=== PATIENT | male | born 1990 | race Hispanic/Latino ===

== ENCOUNTER 2019-04-19 04:56 | Emergency (ER) | payer OTHER, SELFPAY ==
[2019-04-19] MEDS ORDERED: NA CHLORIDE 0.9% 1,000 ML ONE (05:52)
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
[2019-04-19 08:08] VITALS: TEMP 98.6
[2019-04-19 08:09] VITALS: BP 139/104; O2SAT 97
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
== END 2019-04-19 07:58 | disposition home or self-care (01) ==
LOC: ER 04:56
DX: T14.8XXA Other injury of unspecified body region, initial encounter (principal); V49.9XXA Car occupant (driver) (passenger) injured in unspecified traffic accident, initial encounter; M25.512 Pain in left shoulder; M54.2 Cervicalgia; Z72.0 Tobacco use
CPT/HCPCS: 70450; 71260; 72125; 74177; 96360; 96361; 99284; J7030; Q9967

== ENCOUNTER 2019-09-23 10:17 | Emergency (ER) | payer SELFPAY ==
[2019-09-23] MEDS ORDERED: HYDROCODONE/CHLORPHEN 5 ML/OSYR ONE (11:11)
--- NOTE | 2019-09-23 11:13 | RAD REPORT ---
EXAM DESCRIPTION: RAD - Chest Pa And Lat (2 Views) - 09/23/2019 10:57 am CLINICAL HISTORY: Cough;Fever Chest pain. COMPARISON: Chest Pa And Lat (2 Views) dated 02/19/2017; CHEST PA AND LAT 2 VIEW dated 08/15/2009; CH EST PA AND LAT 2 VIEW dated 07/29/2009 FINDINGS: The lungs are clear. The heart is normal in size. No displaced fractures. IMPRESSION: No acute or concerning finding suspected.
--- NOTE | 2019-09-23 11:31 | ER ---
Nurse's Notes [facility] Name: Javad Bowser Age: 29 yrs Sex: Male : 1990 Arrival Date: 09/23/2019 Time: 10:20 Bed 19 Private MD: Larry Palomo T Diagnosis: Otitis media, unspecified, right ear;Cough Presentation: 09/23 10:25 Transition of care: patient was not received from another setting of care. Onset of tw2 symptoms. Risk Assessment: Do you want to hurt yourself or someone else? Patient reports no desire to harm self or others. Initial Sepsis Screen: Does the patient meet any 2 criteria? No. Patient's initial sepsis screen is negative. Does the patient have a suspected source of infection? No. Patient's initial sepsis screen is negative. 10:25 Method Of Arrival: Ambulatory tw2 10:31 Presenting complaint: Patient states: cough, sweats, body aches, headache , also had iw diarrhea with blood in it. Care prior to arrival: None. 10:31 Acuity: DIAMOND 3 iw Historical: - Allergies: 10:28 No Known Allergies; tw2 - PMHx: 10:28 orbit facial fx; tw2 - PSHx: 10:28 None; tw2 - Immunization history:: Adult Immunizations. - Ebola Screening: : Patient denies travel to an Ebola-affected area in the 21 days before illness onset. - Social history:: Smoking status: . Screenin:27 Abuse screen: Denies threats or abuse. Nutritional screening: No deficits noted. tw2 Tuberculosis screening: No symptoms or risk factors identified. Fall Risk None identified. Assessment: 10:22 General: Appears in no apparent distress. Behavior is calm, cooperative, appropriate tw2 for age. Neuro: Level of Consciousness is awake, alert, obeys commands, Oriented to person, place, time, situation. Cardiovascular: Heart tones S1 S2 Capillary refill < 3 seconds Patient's skin is warm and dry. Respiratory: Reports cough that is non-productive, Airway is patent Respiratory effort is even, unlabored, Respiratory pattern is regular, symmetrical, Breath sounds are clear bilaterally. GI: Abdomen is flat, Bowel sounds present X 4 quads. Reports diarrhea, with blood in it. GI:. : No signs and/or symptoms were reported regarding the genitourinary system. EENT: Reports nasal congestion nasal discharge. Derm: No signs and/or symptoms reported regarding the dermatologic system. Musculoskeletal: Reports "body aches". 11:35 Reassessment: Patient appears in no apparent distress at this time. No changes from tw2 previously documented assessment. Patient and/or family updated on plan of care and expected duration. Pain level reassessed. Patient is alert, oriented x 3, equal unlabored respirations, skin warm/dry/pink. 11:38 Pain: Complains of pain in Body aches. tw2 11:54 Reassessment: Patient appears in no apparent distress at this time. No changes from tw2 previously documented assessment. Patient and/or family updated on plan of care and expected duration. Pain level reassessed. Patient is alert, oriented x 3, equal unlabored respirations, skin warm/dry/pink. pts brother in room at this time. Vital Signs: 10:25 BP 144 / 112; Pulse 102; Resp 18; Temp 98.8(TE); Pulse Ox 96% on R/A; Weight 89.81 kg; iw Height 5 ft. 7 in. (170.18 cm); Pain 8/10; 10:42 BP 130 / 96; Pulse 94; Resp 17; Pulse Ox 99% on R/A; tw2 11:38 BP 125 / 99; Pulse 92; Resp 17; Pulse Ox 99% on R/A; tw2 10:25 Body Mass Index 31.01 (89.81 kg, 170.18 cm) iw ED Course: 10:20 Patient arrived in ED. mr 10:20 Larry Palomo MD is Private Physician. mr 10:21 Edith Puente, DEVON is Primary Nurse. tw2 10:21 Bed in low position. Call light in reach. tw2 10:25 Sandoval Dailey NP is PHCP. pm1 10:25 Albin Whittington MD is Attending Physician. pm1 10:32 Triage completed. iw 10:32 Arm band placed on. iw 10:42 Flu Sent. tw2 10:42 Strep Sent. tw2 10:54 Chest Pa And Lat (2 Views) XRAY In Process Unspecified. EDMS 11:40 Awaiting transportation, Awaiting: transportation after medication PRIOR to discharge. tw2 11:55 No provider procedures requiring assistance completed. Patient did not have IV access tw2 during this emergency room visit. Administered Medications: 11:11 Drug: Tussionex Pennkinetic ER 5 ml Route: PO; tw2 11:55 Follow up: Response: No adverse reaction; RASS: Alert and Calm (0) tw2 Outcome: 11:30 Discharge ordered by MD. pm1 11:55 Discharged to home ambulatory, with family. tw2 11:55 Condition: stable 11:55 Discharge instructions given to patient, family, Instructed on discharge instructions, follow up and referral plans. medication usage, Demonstrated understanding of instructions, follow-up care, medications, Prescriptions given X 2. 11:56 Patient left the ED. tw2 Signatures: Dispatcher [employer] EDPA Mayra Montemayor Irene RN RN iw Sandoval Dailey, [employer] pm1 Edith Puente RN RN tw2 Corrections: (The following items were deleted from the chart) 10:31 10:25 BP 144 / 112; Pulse 102bpm; Resp 18bpm; Pulse Ox 96% RA; Temp 98.8F Temporal; tw2 iw 11:42 11:40 Awaiting transportation, tw2 tw2
--- NOTE | 2019-09-23 11:32 | EDPHYS ---
Physician Documentation [facility] Name: Javad Bowser Age: 29 yrs Sex: Male : 1990 Arrival Date: 09/23/2019 Time: 10:20 Bed 19 Private MD: Larry Palomo T ED Physician Albin Whittington HPI: 09/23 11:08 This 29 yrs old Male presents to ER via Ambulatory with complaints of Flu pm1 Symptoms. 11:08 The patient or guardian reports cough, with no sputum, flu symptoms, chills and body pm1 aches. Onset: The symptoms/episode began/occurred 3 day(s) ago. Severity of symptoms: in the emergency department the symptoms are actually worse. Modifying factors: The symptoms are alleviated by nothing, the symptoms are aggravated by nothing. Associated signs and symptoms: Pertinent positives: chest pain, with cough, earache, fever, rhinorrhea, sore throat, yellow drainage from right ear. Reports some soft stool/diarrhea that had some specks of blood in it early this AM. Had bowel movement prior to ER arrival that was normal consistency without any visibile blood in it. Reports history of hemorrhoids in the past, Pertinent negatives: vomiting, abdominal pain. Historical: - Allergies: 10:28 No Known Allergies; tw2 - PMHx: 10:28 orbit facial fx; tw2 - PSHx: 10:28 None; tw2 - Immunization history:: Adult Immunizations. - Ebola Screening: : Patient denies travel to an Ebola-affected area in the 21 days before illness onset. - Social history:: Smoking status: . ROS: 11:08 Eyes: Negative for injury, pain, redness, and discharge. pm1 11:08 Neck: Negative for injury, pain, and swelling, Cardiovascular: Negative for chest pain, palpitations, and edema. 11:08 Abdomen/GI: Negative for abdominal pain, nausea, vomiting, diarrhea, and constipation, Back: Negative for injury and pain, : Negative for injury, bleeding, discharge, and swelling, MS/Extremity: Negative for injury and deformity, Skin: Negative for injury, rash, and discoloration, Neuro: Negative for headache, weakness, numbness, tingling, and seizure. 11:08 Constitutional: Positive for body aches, chills, subjective fever, Negative for poor PO intake. 11:08 ENT: Positive for drainage from ear(s), ear pain, sore throat, Negative for difficulty swallowing, difficulty handling secretions, hoarseness. 11:08 Respiratory: Positive for cough, Negative for shortness of breath, wheezing. Exam: 11:08 Constitutional: This is a well developed, well nourished patient who is awake, alert, pm1 and in no acute distress. Head/Face: Normocephalic, atraumatic. Eyes: Pupils equal round and reactive to light, extra-ocular motions intact. Lids and lashes normal. Conjunctiva and sclera are non-icteric and not injected. Cornea within normal limits. Periorbital areas with no swelling, redness, or edema. 11:08 Neck: Trachea midline, no thyromegaly or masses palpated, and no cervical lymphadenopathy. Supple, full range of motion without nuchal rigidity, or vertebral point tenderness. No Meningismus. Chest/axilla: Normal chest wall appearance and motion. Nontender with no deformity. No lesions are appreciated. Cardiovascular: Regular rate and rhythm with a normal S1 and S2. No gallops, murmurs, or rubs. No pulse deficits. Respiratory: Lungs have equal breath sounds bilaterally, clear to auscultation and percussion. No rales, rhonchi or wheezes noted. No increased work of breathing, no retractions or nasal flaring. Abdomen/GI: Soft, non-tender, with normal bowel sounds. No distension or tympany. No guarding or rebound. No evidence of tenderness throughout. Back: No spinal tenderness. No costovertebral tenderness. Full range of motion. Skin: Warm, dry with normal turgor. Normal color with no rashes, no lesions, and no evidence of cellulitis. MS/ Extremity: Pulses equal, no cyanosis. Neurovascular intact. Full, normal range of motion. 11:08 ENT: External ear(s): are unremarkable, Ear canal(s): purulent discharge, in the right canal, TM's: bulging, on the right, erythema, that is mild, on the right, rupture, is not appreciated, Nose: is normal, Mouth: is normal, Posterior pharynx: is normal. 11:08 Neuro: Orientation: is normal, Motor: is normal, moves all fours, Gait: is steady, at a normal pace, without difficulty. Vital Signs: 10:25 BP 144 / 112; Pulse 102; Resp 18; Temp 98.8(TE); Pulse Ox 96% on R/A; Weight 89.81 kg; iw Height 5 ft. 7 in. (170.18 cm); Pain 8/10; 10:42 BP 130 / 96; Pulse 94; Resp 17; Pulse Ox 99% on R/A; tw2 11:38 BP 125 / 99; Pulse 92; Resp 17; Pulse Ox 99% on R/A; tw2 10:25 Body Mass Index 31.01 (89.81 kg, 170.18 cm) iw MDM: 10:26 Patient medically screened. pm1 10:37 ED course: Patient does not want blood work and/or MACK for complaint of blood in stool pm1 this AM since it has resolved. 11:08 Data reviewed: vital signs. Data interpreted: Pulse oximetry: on room air is 99 %. pm1 Interpretation: normal. 11:28 Counseling: I had a detailed discussion with the patient and/or guardian regarding: the pm1 historical points, exam findings, and any diagnostic results supporting the discharge/admit diagnosis, lab results, radiology results, the need for outpatient follow up, to return to the emergency department if symptoms worsen or persist or if there are any questions or concerns that arise at home. 09/23 10:36 Order name: Strep; Complete Time: 11:15 pm1 09/23 10:36 Order name: Flu; Complete Time: 11:15 pm1 09/23 10:36 Order name: Chest Pa And Lat (2 Views) XRAY; Complete Time: 11:15 pm1 09/23 11:13 Order name: Throat Culture EDMS Administered Medications: 11:11 Drug: Tussionex Pennkinetic ER 5 ml Route: PO; tw2 11:55 Follow up: Response: No adverse reaction; RASS: Alert and Calm (0) tw2 Disposition: 15:29 Co-signature as Attending Physician, Albin Whittington MD I agree with the assessment and kdr plan of care. Disposition: 09/23/19 11:30 Discharged to Home. Impression: Otitis media, unspecified, right ear, Cough. - Condition is Stable. - Discharge Instructions: Otitis Media, Adult, Cough, Adult. - Prescriptions for Amoxicillin 500 mg Oral Capsule - take 1 capsule by ORAL route every 8 hours for 10 days; 30 tablet. Guaifenesin AC 10- 100 mg/5 mL Oral Liquid - take 10 milliliter by ORAL route every 4 hours As needed; 240 milliliter. - Medication Reconciliation Form, Thank You Letter, Antibiotic Education, Prescription Opioid Use, Work release form form. - Follow up: Emergency Department; When: As needed; Reason: Worsening of condition. Follow up: Private Physician; When: 2 - 3 days; Reason: Recheck today's complaints, Continuance of care, Re-evaluation by your physician. - Problem is new. - Symptoms have improved. Signatures: Dispatcher [employer] EDMS Albin Whittington MD MD kdr Marinas, Patrick, NP TOTER pm1 Edith Puente RN RN tw2 Corrections: (The following items were deleted from the chart) 11:31 11:30 09/23/2019 11:30 Discharged to Home. Impression: Otitis media, unspecified, right pm1 ear. Condition is Stable. Forms are Work release form, Medication Reconciliation Form, Thank You Letter, Antibiotic Education, Prescription Opioid Use. Follow up: Emergency Department; When: As needed; Reason: Worsening of condition. Follow up: Private Physician; When: 2 - 3 days; Reason: Recheck today's complaints, Continuance of care, Re-evaluation by your physician. Problem is new. Symptoms have improved. pm1 11:56 11:31 09/23/2019 11:30 Discharged to Home. Impression: Otitis media, unspecified, right tw2 ear; Cough. Condition is Stable. Discharge Instructions: Otitis Media, Adult, Cough, Adult. Prescriptions for Amoxicillin 500 mg Oral Capsule - take 1 capsule by ORAL route every 8 hours for 10 days; 30 tablet, Guaifenesin AC 10-100 mg/5 mL Oral Liquid - take 10 milliliter by ORAL route every 4 hours As needed; 240 milliliter. and Forms are Work release form, Medication Reconciliation Form, Thank You Letter, Antibiotic Education, Prescription Opioid Use. Follow up: Emergency Department; When: As needed; Reason: Worsening of condition. Follow up: Private Physician; When: 2 - 3 days; Reason: Recheck today's complaints, Continuance of care, Re-evaluation by your physician. Problem is new. Symptoms have improved. pm1
[2019-09-23 12:03] VITALS: TEMP 98.8
[2019-09-23 12:04] VITALS: O2SAT 99
[2019-09-23 12:05] VITALS: BP 125/99
== END 2019-09-23 11:56 | disposition home or self-care (01) ==
LOC: ER 10:17
DX: H66.91 Otitis media, unspecified, right ear (principal)
CPT/HCPCS: 71046; 87070; 87081; 87804; 99284

== ENCOUNTER 2021-05-27 16:04 | Emergency (ER) | payer SELFPAY ==
--- NOTE | 2021-05-27 17:15 | RAD REPORT ---
EXAM DESCRIPTION: RAD - Chest Pa And Lat (2 Views) - 05/27/2021 4:53 pm CLINICAL HISTORY: DYSPNEA Chest pain. COMPARISON: Chest Pa And Lat (2 Views) dated 09/23/2019; Chest Pa And Lat (2 Views) dated 02/19/2017; CHEST PA AND LAT 2 VIEW dated 08/15/2009; CHEST PA AND LAT 2 VIEW dated 07/29/2009 FINDINGS: Mild opacities are present in the periphery of both lungs most compatible with underlying viral infection. The heart is normal in size. No displaced fractures.
--- NOTE | 2021-05-27 17:17 | ER ---
Nurse's Notes [facility] Name: Javad Bowser Age: 30 yrs Sex: Male : 1990 Arrival Date: 05/27/2021 Time: 16:07 Bed Waiting Private MD: Diagnosis: Coronavirus infection, unspecified Presentation: 05/27 16:12 Chief complaint: Patient states: COVID + last . c/o coughing has not subsided sv and last night started having dyspnea. His PCP told him to come to the ER. Coronavirus screen: Client reports previous positive COVID test result. Date of collection: May 21, 2021. Ebola Screen: No symptoms or risks identified at this time. Risk Assessment: Do you want to hurt yourself or someone else? Patient reports no desire to harm self or others. Onset of symptoms was May 26, 2021. 16:12 Method Of Arrival: Ambulatory sv 16:12 Acuity: DIAMOND 4 sv 16:13 Initial Sepsis Screen: Does the patient meet any 2 criteria? HR > 90 bpm. No. Patient's sv initial sepsis screen is negative. Does the patient have a suspected source of infection? No. Patient's initial sepsis screen is negative. Triage Assessment: 16:15 General: Appears in no apparent distress. comfortable, well developed, Behavior is sv calm, cooperative, appropriate for age. Pain:. Neuro: Level of Consciousness is awake, alert, obeys commands, Oriented to person, place, time, situation, Gait is steady. Respiratory: Reports shortness of breath Airway is patent Respiratory effort is even, unlabored, Respiratory pattern is regular, symmetrical, Onset: The symptoms/episode began/occurred yesterday, the patient has mild shortness of breath. Historical: - Allergies: 16:13 No Known Allergies; sv - PMHx: 16:13 orbit facial fx; sv - Immunization history:: Client reports having NOT received the Covid vaccine. - Social history:: Smoking status: Patient reports the use of cigarette tobacco products, denies chronic smoking, but will smoke occasionally. Screenin:27 Abuse screen: Denies threats or abuse. Denies injuries from another. Nutritional sv screening: No deficits noted. Tuberculosis screening: No symptoms or risk factors identified. Fall Risk None identified. Assessment: 16:18 Reassessment: Janet LEASE BROKER in triage assessing pt. sv 17:27 Reassessment: Patient appears in no apparent distress at this time. No changes from sv previously documented assessment. Patient and/or family updated on plan of care and expected duration. Pain level reassessed. Patient is alert, oriented x 3, equal unlabored respirations, skin warm/dry/pink. Vital Signs: 16:13 BP 144 / 113; Pulse 101; Resp 20; Temp 97.7(O); Pulse Ox 100% ; Weight 88.45 kg; Height sv 5 ft. 7 in. (170.18 cm); Pain 1/10; 17:28 BP 138 / 99; Pulse 100; Resp 20; sv 16:13 Body Mass Index 30.54 (88.45 kg, 170.18 cm) sv ED Course: 16:07 Patient arrived in ED. as 16:12 Arm band placed on. sv 16:13 Triage completed. sv 16:22 Janet Chisholm FNP-C is PHCP. kb 16:22 Matthias Singleton MD is Attending Physician. kb 16:52 Chest Pa And Lat (2 Views) XRAY In Process Unspecified. EDMS 17:27 Jamila Nesbitt, RN is Primary Nurse. sv 17:27 Patient has correct armband on for positive identification. sv 17:27 No provider procedures requiring assistance completed. Patient did not have IV access sv during this emergency room visit. Administered Medications: No medications were administered Outcome: 17:17 Discharge ordered by MD. kb 17:27 Discharged to home ambulatory. sv 17:27 Condition: stable 17:27 Discharge instructions given to patient, Instructed on discharge instructions, follow up and referral plans. Demonstrated understanding of instructions, follow-up care. 17:28 Patient left the ED. sv Signatures: Dispatcher [employer] EDTN Janet Chisholm FNP-C FNP-Ckb Verde, Stephanie RN RN Lurdes Wallace as Corrections: (The following items were deleted from the chart) 16:16 16:13 Pulse 101bpm; Resp 20bpm; Pulse Ox 100%; Temp 97.7F Oral; 88.45 kg; Height 5 ft. sv 7 in.; BMI: 30.5; Pain 1/10; sv
--- NOTE | 2021-05-27 17:17 | EDPHYS ---
Physician Documentation [facility] Name: Javad Bowser Age: 30 yrs Sex: Male : 1990 Arrival Date: 05/27/2021 Time: 16:07 Bed Waiting Private MD: ED Physician Matthias Singleton HPI: 05/27 16:45 This 30 yrs old Male presents to ER via Ambulatory with complaints of kb Breathing Difficulty - covid+. 16:48 The patient or guardian reports cough, that is intermittent, described as moderate, kb with no sputum, difficulty breathing, flu symptoms, low-grade fever, myalgias. Onset: The symptoms/episode began/occurred last week. Severity of symptoms: At their worst the symptoms were moderate, in the emergency department the symptoms are unchanged. Modifying factors: The symptoms are alleviated by nothing, the symptoms are aggravated by nothing. Associated signs and symptoms: Pertinent positives: fever. The patient has not experienced similar symptoms in the past. The patient has not recently seen a physician. 16:49 Pt reports he has had cough, bodyaches, fever, chills, n/v/d since last Tuesday. Tested kb positive for covid on . Yesterday was having coughing fits that caused shortness of breath so he called his dr and was prescribed cough medication. States his dr told him to come to ER for eval today. Denies shortness of breath at this time. Historical: - Allergies: 16:13 No Known Allergies; sv - PMHx: 16:13 orbit facial fx; sv - Immunization history:: Client reports having NOT received the Covid vaccine. - Social history:: Smoking status: Patient reports the use of cigarette tobacco products, denies chronic smoking, but will smoke occasionally. ROS: 16:44 Cardiovascular: Negative for chest pain, palpitations, and edema. kb 16:44 Constitutional: Positive for body aches, chills, fatigue, fever, malaise. 16:44 Respiratory: Positive for cough, shortness of breath. 16:44 Abdomen/GI: Positive for nausea, vomiting, and diarrhea. 16:44 All other systems are negative. Exam: 16:44 Constitutional: This is a well developed, well nourished patient who is awake, alert, kb and in no acute distress. Head/Face: Normocephalic, atraumatic. Cardiovascular: Regular rate and rhythm with a normal S1 and S2. No gallops, murmurs, or rubs. No pulse deficits. Respiratory: Respirations even and unlabored. No increased work of breathing, no retractions or nasal flaring. Abdomen/GI: Soft, non-tender. No distention Skin: Warm, dry with normal turgor. Normal color. MS/ Extremity: Pulses equal, no cyanosis. Neurovascular intact. Full, normal range of motion. Neuro: Awake and alert, GCS 15, oriented to person, place, time, and situation. Moves all extremities. Normal gait. Psych: Awake, alert, with orientation to person, place and time. Behavior, mood, and affect are within normal limits. Vital Signs: 16:13 BP 144 / 113; Pulse 101; Resp 20; Temp 97.7(O); Pulse Ox 100% ; Weight 88.45 kg; Height sv 5 ft. 7 in. (170.18 cm); Pain 1/10; 17:28 BP 138 / 99; Pulse 100; Resp 20; sv 16:13 Body Mass Index 30.54 (88.45 kg, 170.18 cm) sv MDM: 16:22 Patient medically screened. kb 16:43 Data reviewed: vital signs, nurses notes. Data interpreted: Pulse oximetry: on room air kb is 100 %. Interpretation: normal. 16:45 Counseling: I had a detailed discussion with the patient and/or guardian regarding: the kb historical points, exam findings, and any diagnostic results supporting the discharge/admit diagnosis, radiology results, the need for outpatient follow up, a family practitioner, to return to the emergency department if symptoms worsen or persist or if there are any questions or concerns that arise at home. 05/27 16:16 Order name: Chest Pa And Lat (2 Views) XRAY; Complete Time: 17:17 kb Administered Medications: No medications were administered Disposition: 05/28 14:50 Co-signature as Attending Physician, Matthias Singleton MD I agree with the assessment and sonali plan of care. Disposition Summary: 05/27/21 17:17 Discharge Ordered Location: Home kb Condition: Stable kb Diagnosis - Coronavirus infection, unspecified kb Followup: kb - With: Emergency Department - When: As needed - Reason: Worsening of condition Followup: kb - With: Private Physician - When: 2 - 3 days - Reason: Recheck today's complaints, Continuance of care, Re-evaluation by your physician Discharge Instructions: - Discharge Summary Sheet kb - Viral Respiratory Infection, [id number] kb - COVID-19 kb Forms: - Medication Reconciliation Form kb - Thank You Letter kb - Antibiotic Education kb - Prescription Opioid Use kb Signatures: Dispatcher [employer] EDJanet Kline, Jamila Tong RN RN sv Anderson, Corey, MD MD cha
[2021-05-27 17:34] VITALS: TEMP 97.7; O2SAT 100
[2021-05-27 17:35] VITALS: BP 138/99
== END 2021-05-27 17:28 | disposition home or self-care (01) ==
LOC: ER 16:04
DX: U07.1 COVID-19 (principal); F17.210 Nicotine dependence, cigarettes, uncomplicated
CPT/HCPCS: 71046; 99283

== ENCOUNTER 2024-01-28 03:34 | Emergency (ER) | payer BC, SELFPAY ==
[2024-01-28] MEDS ORDERED: ONDANSETRON 4 MG/2 ML VIAL ONE (03:46)
[2024-01-28] MEDS ORDERED: CEFAZOLIN SODIUM 1 GM/VIAL ONE (03:46)
[2024-01-28] MEDS ORDERED: MORPHINE 4 MG/ML SYR ONE (03:46)
[2024-01-28] MEDS ORDERED: NA CHLORIDE 0.9% 100 ML ONE (03:47)
[2024-01-28] MEDS ORDERED: TDAP (DIPHTH,PERTUSS(ACELL),TET VAC) 0.5 ML VIAL IMVAC ONE (03:47)
[2024-01-28] MEDS ORDERED: NA CHLORIDE 0.9% 1,000 ML ONE (03:48)
[2024-01-28] MEDS ORDERED: CROTALIDAE ANTIVENIM 1 GM VIAL IV ONE (04:05)
[2024-01-28 04:06] LABS: Absolute Basophils 0.1 K/uL (0-0.5); Absolute Eosinophils 0.3 K/uL (0-0.5); Absolute Lymphocytes (CBC) 3.3 K/uL (0.7-4.9); Absolute Monocytes 0.8 K/uL (0.1-1.3); Absolute Neutrophil 5.5 K/uL (1.8-8.0); Basophils % 0.9 % (0-1.3); Eosinophils % 3.3 % (0-4.4); Hematocrit 50.2 % (39.6-49.0); Lymphocytes % 32.9 % (15.3-44.8); MCH 29.4 pg (27.0-35.0); MCHC 33.7 g/dL (32.0-36.0); MCV 87.1 fL (80-100); MPV 9.2 fL (7.6-11.3); Neutrophils % 54.9 % (41.7-73.7); Nucleated Red Blood Cells % 0.1 % (0-0); Platelets 337 thou/uL (152-406); RBC Red Blood Cell Count 5.77 M/uL (4.33-5.43); Red Cell Distribution Width 13.4 % (12.1-15.2)
[2024-01-28] MEDS ORDERED: NA CHLORIDE 0.9% 250 ML ONE (04:10)
[2024-01-28 04:14] LABS: PT Prothrombin Time 9.7 SECONDS (9.5-12.5); PTT, Activated Partial Thromb 30.9 SECONDS (24.3-36.9); Protime INR 0.88
[2024-01-28 04:20] LABS: Albumin 4.2 g/dL (3.4-5.0); Albumin/Globulin Ratio 1.2 (1.1-1.8); Anion Gap 9.9 mEq/L (5.0-15.0); Bilirubin Total 0.3 mg/dL (0.2-1.0); Globulin 3.5 g/dL (2.3-3.5); Potassium 3.9 mEq/L (3.5-5.1); Protein, Total 7.7 g/dL (6.4-8.2)
--- NOTE | 2024-01-28 04:40 | EDPHYS ---
Physician Documentation [facility] Name: Javad Bowser Age: 33 yrs Sex: Male : 1990 Arrival Date: 01/28/2024 Time: 03:34 Bed 2 Private MD: Matthias Brenner HPI: 01/27 03:57 This 33 yrs old Male presents to ER via Wheelchair with complaints of right sonali foot snake bite, grade1. 03:57 The patient presents with pain, a puncture wound, swelling, tenderness. The complaints sonali affect the right foot. Context: The problem was sustained at a bar or nightclub, at home. Historical: - Allergies: 03:44 No Known Allergies; cm10 - PMHx: 03:44 eczema; orbit facial fx; cm10 - PSHx: 03:44 Orbital FX repair; cm10 - Immunization history:: Adult Immunizations up to date. - Infectious Disease History:: Denies. - Social history:: Smoking status: Patient denies any tobacco usage or history of. ROS: 04:03 Constitutional: Negative for fever, chills, and weight loss, Eyes: Negative for injury, sonali pain, redness, and discharge, ENT: Negative for injury, pain, and discharge, Neck: Negative for injury, pain, and swelling, Cardiovascular: Negative for chest pain, palpitations, and edema, Respiratory: Negative for shortness of breath, cough, wheezing, and pleuritic chest pain, Abdomen/GI: Negative for abdominal pain, nausea, vomiting, diarrhea, and constipation, Back: Negative for injury and pain, : Negative for injury, bleeding, discharge, and swelling, Neuro: Negative for headache, weakness, numbness, tingling, and seizure, Psych: Negative for depression, anxiety, suicide ideation, homicidal ideation, and hallucinations, Allergy/Immunology: Negative for hives, rash, and allergies, Endocrine: Negative for neck swelling, polydipsia, polyuria, polyphagia, and marked weight changes, Hematologic/Lymphatic: Negative for swollen nodes, abnormal bleeding, and unusual bruising, 04:03 MS/extremity: Positive for decreased range of motion, ecchymosis, pain, paresthesias, swelling, of the right foot, Exam: 04:03 Constitutional: This is a well developed, well nourished patient who is awake, alert, sonali and in no acute distress. Head/Face: Normocephalic, atraumatic. Eyes: Pupils equal round and reactive to light, extra-ocular motions intact. Lids and lashes normal. Conjunctiva and sclera are non-icteric and not injected. Cornea within normal limits. Periorbital areas with no swelling, redness, or edema. ENT: Nares patent. No nasal discharge, no septal abnormalities noted. Tympanic membranes are normal and external auditory canals are clear. Oropharynx with no redness, swelling, or masses, exudates, or evidence of obstruction, uvula midline. Mucous membranes moist. Neck: Trachea midline, no thyromegaly or masses palpated, and no cervical lymphadenopathy. Supple, full range of motion without nuchal rigidity, or vertebral point tenderness. No Meningismus. Chest/axilla: Normal chest wall appearance and motion. Nontender with no deformity. No lesions are appreciated. Respiratory: Lungs have equal breath sounds bilaterally, clear to auscultation and percussion. No rales, rhonchi or wheezes noted. No increased work of breathing, no retractions or nasal flaring. Abdomen/GI: Soft, non-tender, with normal bowel sounds. No distension or tympany. No guarding or rebound. No evidence of tenderness throughout. Back: No spinal tenderness. No costovertebral tenderness. Full range of motion. Male : Normal genitalia with no discharge or lesions. Neuro: Awake and alert, GCS 15, oriented to person, place, time, and situation. Cranial nerves II-XII grossly intact. Motor strength 5/5 in all extremities. Sensory grossly intact. Cerebellar exam normal. Normal gait. Psych: Awake, alert, with orientation to person, place and time. Behavior, mood, and affect are within normal limits. 04:03 Cardiovascular: Rate: tachycardic, actual rate is 120 bpm, Rhythm: regular, Pulses: Pulses are 4+ in right femoral artery, right popliteal artery, right posterior tibial artery, right dorsalis pedis artery, left femoral artery and left popliteal artery. Heart sounds: normal, normal S1and S2, no S3 or S4, no murmur, no rub, no gallop, Edema: right foot dorsal swelling, spreading, JVD: is not appreciated, 04:45 ECG was reviewed by the Attending Physician. [facility] Vital Signs: 03:40 BP 153 / 117; Pulse 120; Resp 16; Temp 98.9(O); Pulse Ox 98% on R/A; Weight 99.79 kg; jb4 05:00 BP 143 / 98; Pulse 66; Resp 18; Pulse Ox 98% on R/A; jb4 MDM: 03:39 Patient medically screened. [facility] 04:07 Differential diagnosis: penetrating trauma, cellulitis. Data reviewed: vital signs, [facility] nurses notes, lab test result(s), radiologic studies, plain films. Consideration of Admission/Observation Escalation of care including admission/observation considered. I considered the following discharge prescriptions or medication management in the emergency department Medications were administered in the Emergency Department. See MAR. Independent interpretation of the following test(s) in the Emergency Department EKG: See my EKG interpretation above X-Ray: My interpretation is foot xray. Test considered but Not performed: Ultrasound no usg. Historians other than the Patient: Family Member: brother, well informed. Care significantly affected by the following chronic conditions: eczema, orbit. Counseling: I had a detailed discussion with the patient and/or guardian regarding the historical points, exam findings, and any diagnostic results supporting the discharge/admit diagnosis, the presence of at least one elevated blood pressure reading (>120/80) during this emergency department visit, lab results, radiology results, the need to transfer to another facility, for higher level of care, [facility] does not immediately have the required specialist. 01/27 03:45 Order name: CBC with Diff; Complete Time: 04:30 [facility] 01/27 03:45 Order name: Comprehensive Metabolic Panel; Complete Time: 04:30 [facility] 01/27 03:45 Order name: PT-INR; Complete Time: 04:30 [facility] 01/27 03:45 Order name: Ptt, Activated; Complete Time: 04:30 [facility] 01/27 03:51 Order name: CPK [facility] 01/27 04:10 Order name: Creatine Phosphokinase; Complete Time: 04:30 EDMS 01/27 04:38 Order name: D-Dimer; Complete Time: 05:28 EDMS 01/27 03:45 Order name: Foot Right 3 View XRAY [facility] 01/27 04:09 Order name: EKG; Complete Time: 04:09 [facility] 01/27 03:45 Order name: Misc. Order: call poison control; Complete Time: 04:36 sonali 01/27 04:09 Order name: EKG - Nurse/Tech; Complete Time: 05:13 [facility] EC:45 Rate is 82 beats/min. Rhythm is regular. QRS [place] is Normal. [place] interval is normal. QRS sonali interval is normal. QT interval is normal. No Q waves. T waves are Normal. No ST changes noted. Clinical impression: Normal ECG and No evidence of ischemia. Interpreted by me. Reviewed by me. Administered Medications: 03:56 Drug: NS 0.9% IV 1000 ml IV at 1 bolus Per protocol; 1000 mL bolus Route: IV; Rate: 1 cm10 bolus; Site: right antecubital; 05:00 Follow up: IV Status: Completed infusion; IV Intake: 1000ml jb4 03:56 Drug: morphine IVP or IV 4 mg IVP once over 4 mins Route: IVP; Infused Over: 4 mins; cm10 Site: right antecubital; 04:30 Follow up: Response: No adverse reaction; Marked relief of symptoms; Pain is decreased; jb4 RASS: Alert and Calm (0) 03:56 Drug: Ondansetron IVP 4 mg IVP once; over 2 minutes Route: IVP; Site: right antecubital;cm10 04:30 Follow up: Response: No adverse reaction; Marked relief of symptoms jb4 03:57 CANCELLED (Other Intervention Used): tetanus toxoid,adsorbed0.5 ml IM once; Provide cm10 Vaccine Information Statement (VIS). 04:02 Drug: ceFAZolin IVPB 1 grams IVPB once Route: IVPB; Site: right antecubital; cm10 04:02 Drug: Boostrix Tdap IM 0.5 ml IM once; as a single dose Route: IM; Site: left deltoid; cm10 06:13 Follow up: Response: No adverse reaction jb4 04:03 CANCELLED (Duplicate Order): crofab5 vials IV at per protocol once; may repeat at >=1 sonali hour intervals until initial control of symptoms 04:36 Drug: CroFab IV 6 vials IV at per protocol once; may repeat at >=1 hour intervals until jb4 initial control of symptoms Route: IV; Rate: per protocol; Site: right hand; 05:52 Follow up: Response: No adverse reaction; Marked relief of symptoms; IV Status: jb4 Completed infusion; IV Intake: 250ml Disposition Summary: 01/28/24 04:40 Transfer Ordered Notes: Transfer Location: [facility] Reason: Higher level of care sonali Condition: Fair sonali Problem: new sonali Symptoms: have improved sonali Accepting Physician: to [facility](01/28/24 06:15) jb4 Diagnosis - Toxic effect of snake venom - Grade 1-2 sonali Forms: - Medication Reconciliation Form sonali - SBAR form sonali Signatures: Dispatcher [employer] EDMatthias Barron MD MD cha Bryson, James RN RN jb4 Kelly Campoverde RN RN cm10 Corrections: (The following items were deleted from the chart) 03:45 03:45 Foot Right 3 View+RAD.RAD.BRZ ordered. EDMS EDMS 03:46 03:46 CBC+H.LAB.BRZ ordered. EDMS EDMS 03:46 03:46 COMPREHENSIVE METABOLIC PANEL+C.LAB.BRZ ordered. EDMS EDMS 03:46 03:46 PROTIME (+INR)+COAG.LAB.BRZ ordered. EDMS EDMS 03:46 03:46 PTT, ACTIVATED+COAG.LAB.BRZ ordered. EDMS EDMS 03:57 03:45 Tetanus Toxoid,Adsorbed IM 0.5 ml IM once; Provide Vaccine Information Statement cm10 (VIS). ordered. sonali 03:57 03:56 Tetanus Toxoid,Adsorbed IM 0.5 ml IM once; Provide Vaccine Information Statement cm10 (VIS). ordered. cm10 04:03 03:55 CroFab IV 5 vials IV at per protocol once; may repeat at >=1 hour intervals until sonali initial control of symptoms ordered. sonali 04:25 03:46 FIBRINOGEN+COAG.LAB.BRZ ordered. EDMS EDMS 06:15 04:40 to [facility] sonali jb4
--- NOTE | 2024-01-28 04:40 | ER ---
Nurse's Notes [facility] Name: Javad Bowser Age: 33 yrs Sex: Male : 1990 Arrival Date: 01/28/2024 Time: 03:34 Bed 2 Private MD: Diagnosis: Toxic effect of snake venom-Grade 1-2 Presentation: 01/27 03:43 Chief complaint: Patient states: Bit by a snake 10 minutes [employer]. Pt states that he cm10 thinks it was a copper head. Pt has 2 noted puncture kaplan to top of right foot, redness noted. Poison control being contacted. Coronavirus screen: Client denies travel out of the [place] in the last 14 days. At this time, the client does not indicate any symptoms associated with coronavirus-19. Ebola Screen: Patient denies travel to an Ebola-affected area in the 21 days before illness onset. No symptoms or risks identified at this time. Initial Sepsis Screen: Does the patient meet any 2 criteria? HR > 90 bpm. Does the patient have a suspected source of infection? No. Patient's initial sepsis screen is negative. Risk Assessment: Do you want to hurt yourself or someone else? Patient reports no desire to harm self or others. Onset of symptoms was January 28, 2024. 03:43 Method Of Arrival: Wheelchair cm10 03:43 Method Of Arrival: Wheelchair cm10 03:43 Acuity: DIAMOND 2 cm10 Historical: - Allergies: 03:44 No Known Allergies; cm10 - PMHx: 03:44 eczema; orbit facial fx; cm10 - PSHx: 03:44 Orbital FX repair; cm10 - Immunization history:: Adult Immunizations up to date. - Infectious Disease History:: Denies. - Social history:: Smoking status: Patient denies any tobacco usage or history of. Screenin:13 [facility] ED Fall Risk Assessment (Adult) History of falling in the last 3 months, jb4 including since admission No falls in past 3 months (0 pts) Confusion or Disorientation No (0 pts) Intoxicated or Sedated No (0 pts) Impaired Gait No (0 pts) Mobility Assist Device Used No (0 pt) Altered Elimination No (0 pt) Score/Fall Risk Level 0 - 2 = Low Risk Oriented to surroundings, Maintained a safe environment. Abuse screen: Denies threats or abuse. Nutritional screening: No deficits noted. Tuberculosis screening: No symptoms or risk factors identified. Assessment: 03:44 General: Appears in no apparent distress. uncomfortable, Behavior is calm, cooperative, jb4 appropriate for age. Pain: Complains of pain in dorsum of right foot Pain does not radiate. Pain currently is 8 out of 10 on a pain scale. Quality of pain is described as burning, throbbing. Neuro: Level of Consciousness is awake, alert, obeys commands, confused, Oriented to person, place, time, situation. Cardiovascular: Patient's skin is warm and dry. Respiratory: Airway is patent Respiratory effort is even, unlabored, Respiratory pattern is regular, symmetrical. GI: No signs and/or symptoms were reported involving the gastrointestinal system. : No signs and/or symptoms were reported regarding the genitourinary system. EENT: No signs and/or symptoms were reported regarding the EENT system. Derm: Skin is intact, Skin is pink, warm \T\ dry. Bruising that is bright red, yellow, on dorsum of right foot. Musculoskeletal: Circulation, motion, and sensation intact. Range of motion: intact in all extremities, Swelling present in right foot. 04:00 Reassessment: poison control recommended giving IV maintenance fluids, drawing CBC, jb4 CMP, Coags, and Fibrinogen levels. Advised to use opioids or Tylenol for pain. update tetanus, elevate the leg. Provider notifed, . 05:00 Reassessment: Patient appears in no apparent distress at this time. Patient and/or jb4 family updated on plan of care and expected duration. Pain level reassessed. Patient is alert, oriented x 3, equal unlabored respirations, skin warm/dry/pink. swelling marked. 05:49 Reassessment: swelling has not increased since 0530. Marked on pt with skin marker. jb4 Pain is under control at this time. 06:13 Reassessment: pt left with EMS, swelling has not worsened and remains unchanged. jb4 Vital Signs: 03:40 BP 153 / 117; Pulse 120; Resp 16; Temp 98.9(O); Pulse Ox 98% on R/A; Weight 99.79 kg; jb4 05:00 BP 143 / 98; Pulse 66; Resp 18; Pulse Ox 98% on R/A; jb4 ED Course: 03:38 Patient arrived in ED. jb4 03:39 Matthias Singleton MD is Attending Physician. sonali 03:44 Triage completed. cm10 03:44 Arm band placed on Patient placed in an exam room, on a stretcher. cm10 03:44 Initial lab(s) drawn, by me, held in ED. Inserted saline lock: 18 gauge in right cm10 antecubital area, using aseptic technique. Blood collected. 04:10 Foot Right 3 View XRAY In Process Unspecified. EDMS 04:36 Jose F Ramos, RN is Primary Nurse. jb4 05:27 called EMS spoke with Ceasar stated he will be sending ambulance to [place] picker patient to vk transfer to [facility] ER. 05:28 Report given to Reed at [facility] ER. cm10 06:13 Patient has correct armband on for positive identification. Bed in low position. Call jb4 light in reach. Side rails up X 1. Provided Education on: plan of care. 06:13 No provider procedures requiring assistance completed. Patient transferred, IV remains jb4 in place. Administered Medications: 03:56 Drug: NS 0.9% IV 1000 ml IV at 1 bolus Per protocol; 1000 mL bolus Route: IV; Rate: 1 cm10 bolus; Site: right antecubital; 05:00 Follow up: IV Status: Completed infusion; IV Intake: 1000ml jb4 03:56 Drug: morphine IVP or IV 4 mg IVP once over 4 mins Route: IVP; Infused Over: 4 mins; cm10 Site: right antecubital; 04:30 Follow up: Response: No adverse reaction; Marked relief of symptoms; Pain is decreased; jb4 RASS: Alert and Calm (0) 03:56 Drug: Ondansetron IVP 4 mg IVP once; over 2 minutes Route: IVP; Site: right antecubital;cm10 04:30 Follow up: Response: No adverse reaction; Marked relief of symptoms jb4 03:57 CANCELLED (Other Intervention Used): tetanus toxoid,adsorbed0.5 ml IM once; Provide cm10 Vaccine Information Statement (VIS). 04:02 Drug: ceFAZolin IVPB 1 grams IVPB once Route: IVPB; Site: right antecubital; cm10 04:02 Drug: Boostrix Tdap IM 0.5 ml IM once; as a single dose Route: IM; Site: left deltoid; 10 06:13 Follow up: Response: No adverse reaction jb4 04:03 CANCELLED (Duplicate Order): crofab5 vials IV at per protocol once; may repeat at >=1 sonali hour intervals until initial control of symptoms 04:36 Drug: CroFab IV 6 vials IV at per protocol once; may repeat at >=1 hour intervals until jb4 initial control of symptoms Route: IV; Rate: per protocol; Site: right hand; 05:52 Follow up: Response: No adverse reaction; Marked relief of symptoms; IV Status: jb4 Completed infusion; IV Intake: 250ml Intake: 05:00 IV: 1000ml; Total: 1000ml. jb4 05:52 IV: 250ml; Total: 1250ml. jb4 Outcome: 04:40 ER care complete, transfer ordered by MD. lyon 06:13 Transferred by ground EMS to [facility], Transfer form completed. X-rays sent jb4 w/ patient. 06:13 Condition: stable 06:13 Discharge instructions given to patient, Instructed on the need for transfer, Demonstrated understanding of instructions, 06:15 Patient left the ED. jb4 Signatures: Dispatcher [employer] EDMatthias Barron MD MD cha Bryson, James, RN RN jb4 Kelly Campoverde RN RN cm10 Naomy Tom
[2024-01-28 06:33] VITALS: BP 143/98; TEMP 98.9; O2SAT 98
--- NOTE | 2024-01-29 13:35 | RAD REPORT ---
EXAM DESCRIPTION: XR FOOT 3 CLINICAL HISTORY: PAIN COMPARISON: None. TECHNIQUE: XR FOOT 3 OR MORE VIEWS RIGHT 01/28/2024 3:45 AM CDT FINDINGS: There is no fracture. Joint spaces are preserved. There is mild diffuse soft tissue swelling. IMPRESSION: No acute osseous findings. Electronically signed by: Kamran Ott MD 01/28/2024 05:18 AM CDT Due to temporary technical issues with the PACS/Fluency reporting system, reports are being signed by the in house radiologists without review as a courtesy to insure prompt reporting. The interpreting radiologist is fully responsible for the content of the report.
--- NOTE | 2024-01-30 13:01 | EKG ---
Test Date: 2024-01-28 Test Time: 04:43:07 Social Welfare Research Worker: LITTLE MEASUREMENT RESULTS: Intervals: Rate: 82 TN: 150 QRSD: 90 QT: 360 QTc: 420 [place]: P: 59 TN: 150 QRS: 71 T: 25 INTERPRETIVE STATEMENTS: Normal sinus rhythm Normal ECG Compared to ECG 10/29/2008 18:26:59 Sinus tachycardia no longer present T-wave abnormality no longer present Electronically Signed On 01-30-24 12:56:00 CDT by Artemio Jean Baptiste
== END 2024-01-28 06:15 | disposition short-term general hospital (02) ==
LOC: ER 03:34
DX: T63.001A Toxic effect of unspecified snake venom, accidental (unintentional), initial encounter (principal); S91.331A Puncture wound without foreign body, right foot, initial encounter
CPT/HCPCS: 36415; 80053; 82550; 85025; 85379; 85610; 85730; 93005; J0690; J0840; J2405; J7030; J7050

== ENCOUNTER 2024-05-08 21:39 | Emergency (ER) | payer SELFPAY ==
[2024-05-08 22:59] LABS: SARS-CoV-2 Antigen CONTROL BLUE LINE VIS/BG OK; SARS-CoV-2 Antigen Rapid Res Negative (Negative)
--- NOTE | 2024-05-08 23:05 | ER ---
Nurse's Notes [facility] Name: Javad Bowser Age: 33 yrs Sex: Male : 1990 Arrival Date: 05/08/2024 Time: 21:39 Bed IW2 Private MD: Diagnosis: Strain of muscle, fascia and tendon at neck level Presentation: 05/08 21:54 Chief complaint: Patient states: RIGHT SIDED NECK PAIN ONSET YESTERDAY. PT ALSO REPORTS cm10 HEADACHE AND LUMP ON RIGHT SIDE OF NECK. Coronavirus screen: Client denies travel out of the [place] in the last 14 days. At this time, the client does not indicate any symptoms associated with coronavirus-19. Ebola Screen: Patient denies travel to an Ebola-affected area in the 21 days before illness onset. No symptoms or risks identified at this time. Initial Sepsis Screen: Does the patient meet any 2 criteria? HR > 90 bpm. Does the patient have a suspected source of infection? No. Patient's initial sepsis screen is negative. Risk Assessment: Do you want to hurt yourself or someone else? Patient reports no desire to harm self or others. Onset of symptoms was May 08, 2024. 21:54 Method Of Arrival: Ambulatory cm10 21:54 Acuity: DIAMOND 3 cm10 Triage Assessment: 21:55 General: Appears in no apparent distress. comfortable, Behavior is calm, cooperative. cm10 Pain: Complains of pain in head and neck Pain currently is 8 out of 10 on a pain scale. Neuro: No deficits noted. Level of Consciousness is awake, alert, obeys commands, Oriented to person, place, time, situation, Appropriate for age Reports headache. Respiratory: No deficits noted. Airway is patent Respiratory effort is even, unlabored, Respiratory pattern is regular, symmetrical. Historical: - Allergies: 21:55 No Known Allergies; cm10 - PMHx: 21:55 eczema; orbit facial fx; Hypertensive disorder; cm10 - PSHx: 21:55 Orbital FX repair; cm10 - Immunization history:: Adult Immunizations up to date. - Infectious Disease History:: Denies. - Social history:: Smoking status: Reported history of juuling and/or vaping. Screenin:[address] [facility] ED Fall Risk Assessment (Adult) History of falling in the last 3 months, cm10 including since admission No falls in past 3 months (0 pts) Confusion or Disorientation No (0 pts) Intoxicated or Sedated No (0 pts) Impaired Gait No (0 pts) Mobility Assist Device Used No (0 pt) Altered Elimination No (0 pt) Score/Fall Risk Level 0 - 2 = Low Risk Oriented to surroundings, Maintained a safe environment, Hourly rounding (assess needs \T\ fall precautionary measures) done. Abuse screen: Denies threats or abuse. Denies injuries from another. Nutritional screening: No deficits noted. Tuberculosis screening: No symptoms or risk factors identified. Vital Signs: 21:54 BP 134 / 93; Pulse 110; Resp 18; Temp 97.4(TE); Pulse Ox 98% ; Weight 99.79 kg; Height cm10 5 ft. 7 in. ; Pain 8/10; 21:54 Body Mass Index 34.46 (99.79 kg, 170.18 cm) cm10 21:54 Pain Scale: Adult cm10 ED Course: 21:42 Patient arrived in ED. im 21:54 Janet Chisholm FNP-C [facility]. kb 21:55 Flores Loyola MD is Attending Physician. kb 21:55 Triage completed. cm10 21:56 Arm band placed on Patient placed in waiting room. cm10 22:05 SARS RAPID Sent. cm10 22:05 Flu Sent. cm10 22:05 Strep Sent. cm10 22:05 COVID swab sent to lab. Flu and/or RSV swab sent to lab. Strep swab sent to lab. cm10 23:06 Patient has correct armband on for positive identification. Provided Education on: cm10 Follow-up instructions.. Cardiac monitoring not applicable on this patient. 23:07 No provider procedures requiring assistance completed. Patient did not have IV access cm10 during this emergency room visit. Administered Medications: 23:14 Drug: Ibuprofen PO 600 mg PO once Route: PO; cm10 23:14 Follow up: Response: Medication administered at discharge. cm10 Medication: 23:06 VIS not applicable for this client. cm10 Outcome: 23:05 Discharge ordered by . kb 23:14 Discharged to home ambulatory, cm10 23:14 Condition: good 23:14 Discharge instructions given to patient, Instructed on discharge instructions, follow up and referral plans. medication usage, Demonstrated understanding of instructions, follow-up care, medications, Prescriptions given X 2, 23:15 Patient left the ED. cm10 Signatures: Janet Chisholm, JAI DERRICK BOAT LEVER OPERATOR-Ckb Nichelle Bowser Clarissa, DEVON RN cm10
--- NOTE | 2024-05-08 23:05 | EDPHYS ---
Physician Documentation [facility] Name: Javad Bowser Age: 33 yrs Sex: Male : 1990 Arrival Date: 05/08/2024 Time: 21:39 Bed IW2 Private MD: ED Physician Flores Loyola HPI: 05/08 22:51 This 33 yrs old Male presents to ER via Ambulatory with complaints of Neck kb Pain, >24Hrs Old, lump on collarbone, Headache. 23:00 Pt is a 33 year old male who presents with right neck pain that is worse when he looks kb to the right. States it started yesterday. States his daughter is sick and he was feeling ill over the weekend. Denies fever, cough, congestion, sore throat. States he was moving his arms back and fourth at work and having to look left and right a lot to flag. . Historical: - Allergies: 21:55 No Known Allergies; cm10 - PMHx: 21:55 eczema; orbit facial fx; Hypertensive disorder; cm10 - PSHx: 21:55 Orbital FX repair; cm10 - Immunization history:: Adult Immunizations up to date. - Infectious Disease History:: Denies. - Social history:: Smoking status: Reported history of juuling and/or vaping. ROS: 23:04 Constitutional: As per HPI kb Exam: 23:04 Constitutional: This is a well developed, well nourished patient who is awake, alert, kb and in no acute distress. Head/Face: Normocephalic, atraumatic. ENT: Moist Mucous membranes Cardiovascular: Regular rate Respiratory: Respirations even and unlabored. No increased work of breathing. Talking in full sentences Abdomen/GI: Soft, non-tender. No distention Skin: Warm, dry with normal turgor. Normal color. MS/ Extremity: Pulses equal, no cyanosis. Neurovascular intact. Full, normal range of motion. Neuro: Awake and alert, GCS 15, oriented to person, place, time, and situation. Moves all extremities. Normal gait. 23:04 Neck: External neck: tenderness, that is mild, of the right posterior aspect of neck and right lateral aspect of neck, 23:04 Back: pain, that is mild, of the right trapezius, Vital Signs: 21:54 BP 134 / 93; Pulse 110; Resp 18; Temp 97.4(TE); Pulse Ox 98% ; Weight 99.79 kg; Height cm10 5 ft. 7 in. ; Pain 8/10; 21:54 Body Mass Index 34.46 (99.79 kg, 170.18 cm) cm10 21:54 Pain Scale: Adult cm10 MDM: 21:55 Patient medically screened. kb 23:04 Differential diagnosis: myalgia, strain, flu, covid,strep. Data reviewed: vital signs, kb nurses notes. Test considered but Not performed: CT: ct soft tissue neck considered but pt is nontoxic in appearance, no abscess, erythema, warmth noted. Counseling: I had a detailed discussion with the patient and/or guardian regarding the historical points, exam findings, and any diagnostic results supporting the discharge/admit diagnosis, lab results, the need for outpatient follow up, a family practitioner, to return to the emergency department if symptoms worsen or persist or if there are any questions or concerns that arise at home. 05/08 22:01 Order name: Strep; Complete Time: 22:49 cm10 05/08 22:01 Order name: Flu; Complete Time: 22:49 cm10 05/08 22:01 Order name: SARS RAPID; Complete Time: 23:00 cm10 05/08 22:49 Order name: Throat Culture EDMS Administered Medications: 23:14 Drug: Ibuprofen PO 600 mg PO once Route: PO; cm10 23:14 Follow up: Response: Medication administered at discharge. cm10 Disposition Summary: 05/08/24 23:05 Discharge Ordered Notes: Location: Home kb Condition: Stable kb Diagnosis - Strain of muscle, fascia and tendon at neck level kb Followup: kb - With: Emergency Department - When: As needed - Reason: Worsening of condition Followup: kb - With: Private Physician - When: 2 - 3 days - Reason: Recheck today's complaints, Continuance of care, Re-evaluation by your physician Discharge Instructions: - Discharge Summary Sheet kb - Muscle Strain, [id number] kb Forms: - Medication Reconciliation Form kb - Antibiotic Education kb - Prescription Opioid Use kb - Patient Portal Instructions kb - Leadership Thank You Letter kb Prescriptions: - Ibuprofen 600 mg Oral Tablet - take 1 tablet ORAL route every 6 hours As needed take with food; 30 tablet; kb Refills: 0, Product Selection Permitted - orphenadrine citrate 100 mg Oral Tablet Sustained Release - take 1 tablet ORAL route 2 times per day As needed; 20 tablet; Refills: 0, kb Product Selection Permitted Signatures: Dispatcher [employer] EDJanet Kline FNP-C FNP-Ckb Martinez, Clarissa, RN RN cm10 Corrections: (The following items were deleted from the chart) 22:03 22:02 Group A Streptococcus Rapid Sc+BA.LAB.BRZ ordered. EDMS EDMS 22:03 22:03 Influenza Screen (A \T\ B)+BA.LAB.BRZ ordered. EDMS EDMS 22:03 22:03 SARS-COV-2 Antigen Rapid+I.LAB.BRZ ordered. EDMS EDMS
[2024-05-08] MEDS ORDERED: IBUPROFEN 200 MG TAB PO ONE (23:10)
[2024-05-09 10:14] VITALS: BP 134/93; TEMP 97.4; O2SAT 98
== END 2024-05-08 23:15 | disposition home or self-care (01) ==
LOC: ER 21:39
DX: S16.1XXA Strain of muscle, fascia and tendon at neck level, initial encounter (principal); Z11.52 Encounter for screening for COVID-19
CPT/HCPCS: 36415; 87070; 87081; 87804; 87811; 99283

== ENCOUNTER 2024-07-05 21:08 | Emergency (ER) | payer BC ==
[2024-07-05] MEDS ORDERED: NA CHLORIDE 0.9% 1,000 ML ONE (22:08)
[2024-07-05] MEDS ORDERED: KETOROLAC 30 MG/ML INJ ONE (22:08)
[2024-07-05 22:26] LABS: Absolute Eosinophils 0.2 K/uL (0-0.5); Absolute Lymphocytes (CBC) 2.7 K/uL (0.7-4.9); Absolute Monocytes 0.5 K/uL (0.1-1.3); Absolute Neutrophil 4.8 K/uL (1.8-8.0); Basophils % 0.5 % (0-1.3); Eosinophils % 2.8 % (0-4.4); Hemoglobin 16.2 g/dL (13.6-17.9); Lymphocytes % 32.2 % (15.3-44.8); MCH 29.6 pg (27.0-35.0); MCHC 33.7 g/dL (32.0-36.0); MPV 8.5 fL (7.6-11.3); Monocytes % 5.9 % (3.3-12.3); Neutrophils % 58.6 % (41.7-73.7); Platelets 298 thou/uL (152-406); RBC Red Blood Cell Count 5.46 M/uL (4.33-5.43); Red Cell Distribution Width 13.5 % (12.1-15.2)
[2024-07-05 22:43] LABS: SARS-CoV-2 Antigen CONTROL BLUE LINE VIS/BG OK; SARS-CoV-2 Antigen Rapid Res Negative (Negative)
[2024-07-05 22:54] LABS: Albumin 3.9 g/dL (3.4-5.0); Albumin/Globulin Ratio 1.2 (1.1-1.8); Bilirubin Total 0.4 mg/dL (0.2-1.0); Globulin 3.2 g/dL (2.3-3.5); Protein, Total 7.1 g/dL (6.4-8.2)
[2024-07-05] MEDS ORDERED: HYDROCODONE/CHLORPHEN 5 ML/OSYR ONE (23:16)
--- NOTE | 2024-07-06 00:16 | RAD REPORT ---
EXAM: Soft Tissue Neck W/Contr CLINICAL INDICATION: 33-year-old male with left-sided neck pain. COMPARISON: None. TECHNIQUE: CT neck soft tissues were performed following intravenous administration of contrast. Mult iplanar reformatted images were provided. This exam was performed according to our departmental dose optimization program which includes use of automated exposure control, adjustment of the mA and/ or kV according to patient size and/or use of iterative reconstruction technique. FINDINGS: Limited evaluation through the skull base reveals no acute intracranial abnormalities or abnormal pos t contrast enhancement. The visualized vessels are patent and normal in caliber. Few small lymph nodes are scattered throughout the neck soft tissues bilaterally none of which are pa thologically enlarged by CT measurement criteria. The bilateral parotid, bilateral submandibular and thyroid glands are within normal limits. The nasal cavity, posterior nasopharynx, oral cavity, oropharynx, larynx and hypopharynx are within n ormal limits without abnormal enhancement mass or mass effect. The airways are patent. Incidentally noted postoperative changes of the left orbital floor. Limited evaluation of the lung apices are clear. The osseous structures are within normal limits. Patchy opacification of the right side mastoid air c ells and middle ear cavity. IMPRESSION: 1. No specific findings are noted to suggest etiology of the patient's neck pain. 2. Patchy opacification of the right side mastoid air cells and middle ear cavity. Electronically signed by: Lubna Sierra MD 07/06/2024 12:04 AM CDT Due to temporary technical issues with the [email or web address] reporting system, reports are being shayne d by the in-house radiologist without review as a courtesy to ensure prompt reporting the interpreting radiologist is fully responsible for the content of the report. Transcribed Date/Time: 07/06/2024 12:16 AM
--- NOTE | 2024-07-06 00:36 | EDPHYS ---
Physician Documentation [facility] Name: Javad Bowser Age: 33 yrs Sex: Male : 1990 Arrival Date: 07/05/2024 Time: 21:08 Bed 16 Private MD: ED Physician Ferdinand Liao HPI: 07/05 21:20 This 33 yrs old Male presents to ER via Unassigned with complaints of Flu sp4 Symptoms. 21:22 Prescriptions 06/29/2024 - budesonide 90 mcg/actuation Inhalation Aerosol Powder, sp4 Breath Activated administer 2 inhalation INHALATION route every 12 hours; 1 Applicator; Refills: Augmentin 875-125 mg Oral Tablet take 1 tablet ORAL route every 12 hours for 10 days; 20 tablet; Refills: 0; Product Selection Permitted Prednisone 20 mg Oral Tablet take 2 tablets ORAL route once daily for 5 days; 10 tablet; Refills: 0; Product Selection Permitted Guaifenesin AC 10-100 mg/5 mL Oral Liquid take 10 milliliters ORAL route every 4 hours As needed; 240 milliliter . 07/06 20:44 Mr. Bowser is patient who presents with worsening pain in the left side of the neck sp4 and left sore throat. Patient states he was here 06/29/2024 and was prescribed medications for pharyngitis including budesonide, Augmentin, prednisone, guaifenesin . patient states pain and discomfort and is persistent and is worsening . Historical: - Allergies: 07/05 21:28 No Known Allergies; cm10 - PMHx: 21:28 eczema; Hypertensive disorder; orbit facial fx; cm10 - PSHx: 21:28 Orbital FX repair; cm10 - Immunization history:: Adult Immunizations up to date. - Infectious Disease History:: Denies. - Social history:: Smoking status: Patient denies any tobacco usage or history of. - Family history:: not pertinent. ROS: 07/06 20:44 Constitutional: Negative for fever, chills, and weight loss, positive sore throat sp4 positive left-sided neck pain All other systems are negative, Exam: 20:44 Constitutional: This is a well developed, well nourished patient who is awake, alert, sp4 and in no acute distress. Head/Face: Normocephalic, atraumatic. Eyes: Pupils equal round and reactive to light, extra-ocular motions intact. Lids and lashes normal. Conjunctiva and sclera are not injected. Cornea within normal limits. Periorbital areas with no swelling, redness, or edema. ENT: Nares patent. No nasal discharge, no septal abnormalities noted. Tympanic membranes are normal and external auditory canals are clear. Oropharynx with no redness, swelling, or masses, exudates, or evidence of obstruction, uvula midline. Mucous membranes moist. Neck: Trachea midline, no thyromegaly or masses palpated, and no cervical lymphadenopathy. Supple, full range of motion without nuchal rigidity, or vertebral point tenderness. Chest/axilla: Normal chest wall appearance and motion. Nontender with no deformity. No lesions are appreciated. Cardiovascular: Regular rate and rhythm with a normal S1 and S2. No gallops, murmurs, or rubs. Normal PMI, no JVD. No pulse deficits. Respiratory: Lungs have equal breath sounds bilaterally, clear to auscultation and percussion. No rales, rhonchi or wheezes noted. No increased work of breathing, no retractions or nasal flaring. Abdomen/GI: Soft, with normal bowel sounds. No distension or tympany. No guarding or rebound. No evidence of tenderness throughout. Back: No spinal tenderness. No costovertebral tenderness. Skin: Warm, dry with normal turgor. Normal color with no rashes, no lesions, and no evidence of cellulitis. MS/ Extremity: Pulses equal, no cyanosis. Neurovascular intact. Full, normal range of motion. Neuro: Awake and alert, GCS 15, oriented to person, place, time, and situation. Cranial nerves II-XII grossly intact. Motor strength 5/5 in all extremities. Sensory grossly intact. Psych: Awake, alert, with orientation to person, place and time. Behavior, mood, and affect are within normal limits Vital Signs: 07/05 21:25 BP 161 / 116; Pulse 109; Resp 18; Temp 97; Pulse Ox 97% on R/A; Weight 101.6 kg; Height cm10 5 ft. 7 in. ; Pain 6/10; 21:30 BP 148 / 85; Pulse 99; Resp 20; Temp 98.1; Pulse Ox 99% on R/A; rg5 22:30 BP 134 / 92; Pulse 107; Resp 19; Pulse Ox 99% on R/A; rg5 23:30 BP 138 / 91; Pulse 94; Resp 18; Pulse Ox 99% ; cp4 07/06 00:30 BP 134 / 97; Pulse 91; Resp 18; Pulse Ox 100% ; cp4 07/05 21:25 Body Mass Index 35.08 (101.60 kg, 170.18 cm) cm10 07/05 21:25 Pain Scale: Adult cm10 Melville Coma Score: 20:44 Eye Response: spontaneous(4). Motor Response: obeys commands(6). Verbal Response: sp4 oriented(5). Total: 15. MDM: 07/05 21:20 Patient medically screened. sp4 07/06 00:21 ED course: EXAM: Soft Tissue Neck W/Contr CLINICAL INDICATION: 33-year-old male with sp4 left-sided neck pain. COMPARISON: None. TECHNIQUE: CT neck soft tissues were performed following intravenous administration of contrast. Multiplanar reformatted images were provided. This exam was performed according to our departmental dose optimization program which includes use of automated exposure control, adjustment of the mA and/or kV according to patient size and/or use of iterative reconstruction technique. FINDINGS: Limited evaluation through the skull base reveals no acute intracranial abnormalities or abnormal post contrast enhancement. The visualized vessels are patent and normal in caliber. Few small lymph nodes are scattered throughout the neck soft tissues bilaterally none of which are pathologically enlarged by CT measurement criteria. The bilateral parotid, bilateral submandibular and thyroid glands are within normal limits. The nasal cavity, posterior nasopharynx, oral cavity, oropharynx, larynx and hypopharynx are within normal limits without abnormal enhancement mass or mass effect. The airways are patent. Incidentally noted postoperative changes of the left orbital floor. Limited evaluation of the lung apices are clear. The osseous structures are within normal limits. Patchy opacification of the right side mastoid air cells and middle ear cavity. IMPRESSION: 1. No specific findings are noted to suggest etiology of the patient's neck pain. 2. Patchy opacification of the right side mastoid air cells and middle ear cavity. 20:46 Differential Diagnosis altered mental status, sepsis, flu, CT is negative. Stable for sp4 discharge home.. Data reviewed: vital signs, nurses notes, lab test result(s), radiologic studies, CT scan. Consideration of Admission/Observation Escalation of care including admission/observation considered. ED course: CT is negative for abscess or mass. Stable for discharge home, also negative for lymphadenopathy. 07/05 21:20 Order name: SARS RAPID; Complete Time: 23:24 sp4 07/05 21:20 Order name: Influenza Screen (a \T\ B); Complete Time: 23:24 sp4 07/05 21:33 Order name: CBC with Diff; Complete Time: 23:24 sp4 07/05 21:33 Order name: CMP; Complete Time: 23:24 sp4 07/05 21:33 Order name: CT Soft Tissue Neck W/contr; Complete Time: 00:21 sp4 07/05 21:33 Order name: IV Saline Lock; Complete Time: 22:07 sp4 07/05 21:33 Order name: Labs collected and sent; Complete Time: 22:07 sp4 Administered Medications: 07/05 21:50 Drug: Ketorolac IVP 30 mg IVP once Route: IVP; Site: right antecubital; rg5 23:08 Follow up: Response: No adverse reaction; Pain is decreased rg5 21:50 Drug: NS 0.9% IV 1000 ml IV at 1 bolus Per protocol; 1000 mL bolus Route: IV; Rate: 1 rg5 bolus; Site: right antecubital; 23:18 Drug: Tussionex Pennkinetic ER PO Suspension 5 ml PO once Route: PO; cp4 07/06 00:56 Follow up: Response: No adverse reaction cp4 00:56 Drug: Cephalexin PO 500 mg PO once Route: PO; cp4 00:56 Follow up: Response: No adverse reaction cp4 00:56 Not Given (Unavailablee): dextromethorphan-guaifenesinliquid 10 mg-100 mg/5 ml 10 ml PO cp4 once Disposition Summary: 07/06/24 00:36 Discharge Ordered Notes: Location: Home sp4 Problem: new sp4 Symptoms: have improved sp4 Condition: Stable sp4 Diagnosis - Acute pharyngitis, unspecified sp4 - Acute left neck pain, acute pharyngitis, acute left ear pain, mild transaminitis sp4 Followup: sp4 - With: Private Physician - When: 7 - 10 days - Reason: Recheck today's complaints Discharge Instructions: - Discharge Summary Sheet sp4 - Pharyngitis sp4 Forms: - Patient Portal Instructions sp4 Prescriptions: - dextromethorphan-guaifenesin 60-1,200 mg Oral Tablet, Extended Release 12 hr - take 1 tablet ORAL route every 12 hours PRN cough; 40 tablet; Refills: 0, sp4 Product Selection Permitted - Cephalexin 500 mg Oral Capsule - take 1 capsule ORAL route every 12 hours for 10 days; 20 capsule; Refills: 0, sp4 Product Selection Permitted - Ibuprofen 800 mg Oral Tablet - take 1 tablet ORAL route every 8 hours As needed take with food; 30 tablet; sp4 Refills: 0, Product Selection Permitted - benzonatate 200 mg Oral capsule - take 1 capsule ORAL route every 6 hours as needed; 40 capsule; Refills: 0, sp4 Product Selection Permitted Signatures: Dispatcher [employer] EDMS Meenu Askew PA-C PA-C sb4 Ferdinand Liao MD MD sp4 Kelly Campoverde RN RN cm10 Aliya Retana cp4 Hermilo Pimentel RN RN rg5 Corrections: (The following items were deleted from the chart) 07/05 21:20 21:20 SARS-COV-2 Antigen Rapid+I.LAB.BRZ ordered. EDMS EDMS 21:20 21:20 Influenza Screen (A \T\ B)+BA.LAB.BRZ ordered. EDMS EDMS
--- NOTE | 2024-07-06 00:36 | ER ---
Nurse's Notes [facility] Name: Javad Bowser Age: 33 yrs Sex: Male : 1990 Arrival Date: 07/05/2024 Time: 21:08 Bed 16 Private MD: Diagnosis: Acute pharyngitis, unspecified;Acute left neck pain, acute pharyngitis, acute left ear pain, mild transaminitis Presentation: 07/05 21:25 Chief complaint: Patient states: Diagnosed with bronchitis last week and recently cm10 started having pain to his neck. Coronavirus screen: Client denies travel out of the [place] in the last 14 days. Ebola Screen: Patient denies travel to an Ebola-affected area in the 21 days before illness onset. No symptoms or risks identified at this time. Initial Sepsis Screen: Does the patient meet any 2 criteria? HR > 90 bpm. Does the patient have a suspected source of infection? No. Patient's initial sepsis screen is negative. Risk Assessment: Do you want to hurt yourself or someone else? Patient reports no desire to harm self or others. Onset of symptoms was July 05, 2024. 21:25 Method Of Arrival: Ambulatory cm10 21:25 Acuity: DIAMOND 3 cm10 Triage Assessment: 21:28 General: Appears in no apparent distress. comfortable, Behavior is calm, cooperative. cm10 Neuro: No deficits noted. Level of Consciousness is awake, alert, obeys commands, Oriented to person, place, time, situation, Appropriate for age. Respiratory: No deficits noted. Airway is patent Respiratory effort is even, unlabored, Respiratory pattern is regular, symmetrical. Historical: - Allergies: 21:28 No Known Allergies; cm10 - PMHx: 21:28 eczema; Hypertensive disorder; orbit facial fx; cm10 - PSHx: 21:28 Orbital FX repair; cm10 - Immunization history:: Adult Immunizations up to date. - Infectious Disease History:: Denies. - Social history:: Smoking status: Patient denies any tobacco usage or history of. - Family history:: not pertinent. Screenin:30 [facility] ED Fall Risk Assessment (Adult) History of falling in the last 3 months, rg5 including since admission No falls in past 3 months (0 pts) Confusion or Disorientation No (0 pts) Intoxicated or Sedated No (0 pts) Impaired Gait No (0 pts) Mobility Assist Device Used No (0 pt) Altered Elimination No (0 pt) Score/Fall Risk Level 0 - 2 = Low Risk Oriented to surroundings, Maintained a safe environment, Hourly rounding (assess needs \T\ fall precautionary measures) done. Abuse screen: Denies threats or abuse. Nutritional screening: No deficits noted. Tuberculosis screening: No symptoms or risk factors identified. Assessment: 21:30 General: Appears in no apparent distress. Behavior is calm, cooperative, appropriate rg5 for age. 21:30 Pain: Denies pain. Neuro: Level of Consciousness is awake, alert, obeys commands, rg5 Oriented to person, place, time. Cardiovascular: Heart tones S1 S2 Patient's skin is warm and dry. Respiratory: Reports cough that is persistent Airway is patent Trachea midline Respiratory effort is even, unlabored, Respiratory pattern is regular, symmetrical, Breath sounds are clear bilaterally. GI: Abdomen is round Bowel sounds present X 4 quads. Abd is soft and non tender. : No signs and/or symptoms were reported regarding the genitourinary system. EENT: No signs and/or symptoms were reported regarding the EENT system. EENT:. Derm: Skin is intact, Skin is dry, Skin is normal, Skin temperature is warm. Musculoskeletal: Circulation, motion, and sensation intact. Range of motion: intact in all extremities. 22:30 Reassessment: Patient and/or family updated on plan of care and expected duration. Pain rg5 level reassessed. Patient is alert, oriented x 3, equal unlabored respirations, skin warm/dry/pink. 23:05 Reassessment: Patient and/or family updated on plan of care and expected duration. Pain rg5 level reassessed. Patient is alert, oriented x 3, equal unlabored respirations, skin warm/dry/pink. 07/06 00:00 Reassessment: Patient appears in no apparent distress at this time. Patient and/or cp4 family updated on plan of care and expected duration. Pain level reassessed. Patient is alert, oriented x 3, equal unlabored respirations, skin warm/dry/pink. Vital Signs: 07/05 21:25 BP 161 / 116; Pulse 109; Resp 18; Temp 97; Pulse Ox 97% on R/A; Weight 101.6 kg; Height cm10 5 ft. 7 in. ; Pain 6/10; 21:30 BP 148 / 85; Pulse 99; Resp 20; Temp 98.1; Pulse Ox 99% on R/A; rg5 22:30 BP 134 / 92; Pulse 107; Resp 19; Pulse Ox 99% on R/A; rg5 23:30 BP 138 / 91; Pulse 94; Resp 18; Pulse Ox 99% ; cp4 07/06 00:30 BP 134 / 97; Pulse 91; Resp 18; Pulse Ox 100% ; cp4 07/05 21:25 Body Mass Index 35.08 (101.60 kg, 170.18 cm) cm10 07/05 21:25 Pain Scale: Adult cm10 Energy Coma Score: 20:44 Eye Response: spontaneous(4). Motor Response: obeys commands(6). Verbal Response: sp4 oriented(5). Total: 15. ED Course: 07/05 21:12 Patient arrived in ED. im 21:20 Ferdinand Liao MD is Attending Physician. sp4 21:28 Triage completed. cm10 21:28 Arm band placed on right wrist. Patient placed in an exam room, on a stretcher. cm10 21:30 Patient has correct armband on for positive identification. Bed in low position. Call rg5 light in reach. Side rails up X 1. 21:30 No provider procedures requiring assistance completed. rg5 21:31 Hermilo Pimentel, RN is Primary Nurse. rg5 22:07 CBC with Diff Sent. vk 22:07 CMP Sent. vk 22:07 Influenza Screen (a \T\ B) Sent. vk 22:07 SARS RAPID Sent. vk 22:07 Initial lab(s) drawn, by in, sent to lab. COVID swab sent to lab. Flu and/or RSV swab vk sent to lab. Inserted saline lock: 20 gauge in right antecubital area, using aseptic technique. Blood collected. Flushed with 10 mL NS. 23:07 Awaiting lab results. rg5 23:08 CT Soft Tissue Neck W/contr In Process Unspecified. EDMS 07/06 00:58 Provided Education on: pharyngitis. cp4 00:58 intact, bleeding controlled, No redness/swelling at site. Pressure dressing applied. cp4 Administered Medications: 07/05 21:50 Drug: Ketorolac IVP 30 mg IVP once Route: IVP; Site: right antecubital; rg5 23:08 Follow up: Response: No adverse reaction; Pain is decreased rg5 21:50 Drug: NS 0.9% IV 1000 ml IV at 1 bolus Per protocol; 1000 mL bolus Route: IV; Rate: 1 rg5 bolus; Site: right antecubital; 23:18 Drug: Tussionex Pennkinetic ER PO Suspension 5 ml PO once Route: PO; cp4 07/06 00:56 Follow up: Response: No adverse reaction cp4 00:56 Drug: Cephalexin PO 500 mg PO once Route: PO; cp4 00:56 Follow up: Response: No adverse reaction cp4 00:56 Not Given (Unavailablee): dextromethorphan-guaifenesinliquid 10 mg-100 mg/5 ml 10 ml PO cp4 once Medication: 07/05 21:30 VIS not applicable for this client. rg5 Outcome: 07/06 00:36 Discharge ordered by . sp4 00:58 Discharged to home ambulatory, cp4 00:58 Condition: stable 00:58 Discharge instructions given to patient, Instructed on discharge instructions, follow up and referral plans. medication usage, Demonstrated understanding of instructions, follow-up care, medications, Prescriptions given X 4, 00:59 Patient left the ED. cp4 Signatures: Dispatcher [employer] Ferdinand Mcdonough MD MD sp4 Nichelle Bowser Clarissa, RN RN cm10 Aliya Retana cp4 Naomy Tom Rommel RN RN rg5
[2024-07-06] MEDS ORDERED: CEPHALEXIN 250 MG CAP ONE (00:48)
[2024-07-06 11:40] VITALS: TEMP 98.1
[2024-07-06 11:43] VITALS: BP 134/97; O2SAT 100
== END 2024-07-06 00:59 | disposition home or self-care (01) ==
LOC: ER 21:08
DX: J02.9 Acute pharyngitis, unspecified (principal); M54.2 Cervicalgia; H92.02 Otalgia, left ear; R74.01 Elevation of levels of liver transaminase levels; Z11.52 Encounter for screening for COVID-19
CPT/HCPCS: 85025; 36415; 80053; 87804 ×2; 70491; 96374; 99284; 87811; Q9967; J7030

== ENCOUNTER 2025-05-21 15:41 | Emergency (ER) | payer SELFPAY ==
--- OUTSIDE RECORDS SUMMARY | 2025-05-21 15:44 | XMS REPORT | Continuity of Care Document ---
Author Name Unknown Address [address] [place] [address]. [address] [place] [address] [facility] Address [address] [facility]. [address] [place] [address] Care Team Providers Care Pharmacist Per Diem Name Role Phone CHRISTIN RAYGOZA Attending Clinician Unavailable CHRISTIN RAYGOZA Admitting Clinician Unavailable Encounters Start Date/Time End Date/Time Encounter Type Admission Type Attending Clinicians Care Facility Care Department Encounter ID Source 2024-01-28 09:58:00 2024-01-29 13:40:00 Outpatient E CHRISTIN RAYGOZA [facility] MED [id number] 18 [facility]
[2025-05-21 16:32] LABS: Influenza A Ag Negative; Influenza B Ag Negative; SARS-CoV-2 Antigen Rapid Res Negative (Negative)
--- NOTE | 2025-05-21 17:09 | RAD REPORT ---
EXAMINATION: ONE VIEW CHEST XR CLINICAL INDICATION: COUGH TECHNIQUE: Frontal chest projection is submitted. Examination is limited by patient positioning and t echnique. COMPARISON: 06/28/2024 FINDINGS: The lungs are well inflated and clear. The heart is upper limit of normal in size. No displaced fract ures identified. IMPRESSION: No acute intrathoracic abnormalities.
--- NOTE | 2025-05-21 17:13 | EDPHYS ---
Physician Documentation [facility] Name: Javad Bowser Age: 34 yrs Sex: Male : 1990 Arrival Date: 05/21/2025 Time: 15:41 Bed 20 Private MD: ED Physician Flores Loyola HPI: 05/21 15:49 This 34 yrs old Male presents to ER via Unassigned with complaints of Flu kb Symptoms. 15:49 Pt is a 34 year old male who presents for cough, runny nose, congestion, sore throat, kb chills, bodyaches and fatigue that started 6 days ago. Came in today because symptoms are worse now. Reports pain in chest with cough and deep breath. Denies known fever. . Historical: - Allergies: 16:05 No Known Allergies; dd2 - PMHx: 16:05 eczema; Hypertensive disorder; orbit facial fx; dd2 - PSHx: 16:05 Orbital FX repair; dd2 - Immunization history:: Adult Immunizations up to date. - Infectious Disease History:: Denies. - Social history:: Smoking status: Patient denies any tobacco usage or history of. ROS: 16:01 Constitutional: As per HPI kb Exam: 16:01 Constitutional: This is a well developed, well nourished patient who is awake, alert, kb and in no acute distress. Head/Face: Normocephalic, atraumatic. ENT: Moist Mucous membranes Cardiovascular: Regular rate Respiratory: Respirations even and unlabored. No increased work of breathing. Talking in full sentences Skin: Warm, dry with normal turgor. Normal color. MS/ Extremity: Pulses equal, no cyanosis. Neurovascular intact. Full, normal range of motion. Neuro: Awake and alert, GCS 15, oriented to person, place, time, and situation. Vital Signs: 16:01 BP 134 / 92; Pulse 89; Resp 16; Temp 98.4(O); Pulse Ox 100% ; Weight 97.52 kg; Pain dd2 6/10; 17:40 BP 128 / 87; Pulse 86; Resp 17; Temp 98.6; Pulse Ox 100% ; me1 16:01 Pain Scale: Adult dd2 MDM: 15:44 Medical Screening Exam initiated dr5 16:02 Differential diagnosis: covid, flu, strep, uri, pneumonia. Data reviewed: vital signs, kb nurses notes. 16:56 I considered the following discharge prescriptions or medication management in the emergency department I discussed and recommended Over The Counter medications, Antibiotics: At this time antibiotics are not recommended. Independent interpretation of the following test(s) in the Emergency Department X-Ray: My interpretation is CXR: no pneumonia. Counseling: I had a detailed discussion with the patient and/or guardian regarding the historical points, exam findings, and any diagnostic results supporting the discharge/admit diagnosis, lab results, radiology results, the need for outpatient follow up, a family practitioner, to return to the emergency department if symptoms worsen or persist or if there are any questions or concerns that arise at home. 05/21 15:45 Order name: COVID-19 Ag + Flu A+B Ag; Complete Time: 16:34 dr5 05/21 15:49 Order name: Group A Streptococcus Rapid; Complete Time: 16:23 kb 05/21 16:25 Order name: Throat Culture EDAL 05/21 15:49 Order name: Chest Single View XRAY; Complete Time: 17:11 kb Administered Medications: No medications were administered Disposition Summary: 05/21/25 17:12 Discharge Ordered Notes: Location: Home kb Condition: Stable kb Diagnosis - Viral infection, unspecified kb Followup: kb - With: Emergency Department - When: As needed - Reason: Worsening of condition Followup: kb - With: Private Physician - When: 2 - 3 days - Reason: Recheck today's complaints, Continuance of care, Re-evaluation by your physician Discharge Instructions: - Discharge Summary Sheet kb - Viral Illness, Adult kb Forms: - Work release form kb - Medication Reconciliation Form kb - Antibiotic Education kb - Prescription Opioid Use kb - Patient Portal Instructions kb - Leadership Thank You Letter kb Signatures: Dispatcher [employer] Janet Brown, [facility] MEDICAL ASSISTANT OB GYN-Ckb DMITRY DAVENPORT, RN RN dd2 Osvaldo Burch, [facility] MEDICAL ASSISTANT OB GYN-Cdr5
--- NOTE | 2025-05-21 17:13 | ER ---
Nurse's Notes [facility] Name: Javad Bowser Age: 34 yrs Sex: Male : 1990 Arrival Date: 05/21/2025 Time: 15:41 Bed 20 Private MD: Diagnosis: Viral infection, unspecified Presentation: 05/21 16:01 Chief complaint: Patient states: HE BEGAN HAVING A SCRATCHY THROAT ON TUESDAY AND dd2 TUESDAY HAD A COUGH AND RUNNY NOSE AND HAS WORSENED WITH CHILLS, ALL OVER BODY ACHES AND FEELING TIRED. Coronavirus screen: chills, cough unrelated to allergies, fatigue, fever, muscle pain, runny nose, sore throat. Ebola Screen: No symptoms or risks identified at this time. Initial Sepsis Screen: Does the patient meet any 2 criteria? No. Patient's initial sepsis screen is negative. Does the patient have a suspected source of infection? No. Patient's initial sepsis screen is negative. Risk Assessment: Do you want to hurt yourself or someone else? Patient reports no desire to harm self or others. Onset of symptoms was May 16, 2025. 16:01 Method Of Arrival: Ambulatory dd2 16:01 Acuity: DIAMOND 4 dd2 Triage Assessment: 16:05 General: Appears in no apparent distress. uncomfortable, Behavior is calm, cooperative, dd2 appropriate for age. Pain: Complains of pain in THROAT, GENERALIZED BODY. EENT: Reports nasal congestion nasal discharge. Respiratory: Reports cough that is. Historical: - Allergies: 16:05 No Known Allergies; dd2 - PMHx: 16:05 eczema; Hypertensive disorder; orbit facial fx; dd2 - PSHx: 16:05 Orbital FX repair; dd2 - Immunization history:: Adult Immunizations up to date. - Infectious Disease History:: Denies. - Social history:: Smoking status: Patient denies any tobacco usage or history of. Screenin:10 [facility] ED Fall Risk Assessment (Adult) History of falling in the last 3 months, me1 including since admission No falls in past 3 months (0 pts) Confusion or Disorientation No (0 pts) Intoxicated or Sedated No (0 pts) Impaired Gait No (0 pts) Mobility Assist Device Used No (0 pt) Altered Elimination No (0 pt) Score/Fall Risk Level 0 - 2 = Low Risk Maintained a safe environment, Provided non-skid footwear, Hourly rounding (assess needs \T\ fall precautionary measures) done. Abuse screen: Denies threats or abuse. Nutritional screening: No deficits noted. Tuberculosis screening: No symptoms or risk factors identified. Assessment: 16:10 General: Appears ill, Behavior is calm, cooperative, appropriate for age, Reports HE me1 BEGAN HAVING A SCRATCHY THROAT ON TUESDAY AND TUESDAY HAD A COUGH AND RUNNY NOSE AND HAS WORSENED WITH CHILLS, ALL OVER BODY ACHES AND FEELING TIRED. Pain: Complains of pain in throat and generalized body Pain does not radiate. Pain currently is 6 out of 10 on a pain scale. Quality of pain is described as aching, Pain began Is continuous. Neuro: Level of Consciousness is awake, alert, obeys commands, Oriented to person, place, time, situation, Appropriate for age. Cardiovascular: Patient's skin is warm and dry. Respiratory: Reports cough that is persistent Airway is patent Respiratory effort is even, unlabored, Respiratory pattern is regular, symmetrical. GI: No signs and/or symptoms were reported involving the gastrointestinal system. : No signs and/or symptoms were reported regarding the genitourinary system. EENT: Reports nasal congestion nasal discharge since pain when swallowing. Derm: Skin is intact, is healthy with good turgor, Skin is normal. Musculoskeletal: Reports pain in throat and generalized body. Vital Signs: 16:01 BP 134 / 92; Pulse 89; Resp 16; Temp 98.4(O); Pulse Ox 100% ; Weight 97.52 kg; Pain dd2 /10; 17:40 BP 128 / 87; Pulse 86; Resp 17; Temp 98.6; Pulse Ox 100% ; me1 16:01 Pain Scale: Adult dd2 ED Course: 15:44 Patient arrived in ED. im 15:44 Janet Chisholm FNP-C is PHCP. kb 15:44 Flores Loyola MD is Attending Physician. kb 15:44 PHCP role handed off by Janet Chisholm FNP-C dr5 15:44 Osvaldo Burch FNP-C is PHCP. dr5 15:44 PHCP role handed off by Osvaldo Burch FNP-C kb 15:44 Janet Chisholm FNP-C is PHCP. kb 16:05 Triage completed. dd2 16:05 Arm band placed on left wrist. dd2 16:08 Desiree De La Fuente, RN is Primary Nurse. me1 16:10 Patient has correct armband on for positive identification. Bed in low position. Call me1 light in reach. Side rails up X 1. Provided Education on: POC. Verbalized understanding.. Client placed on continuous cardiac and pulse oximetry monitoring. NIBP monitoring applied. Pulse ox on. NIBP on. 16:10 No provider procedures requiring assistance completed. me1 16:39 Chest Single View XRAY In Process Unspecified. EDMS 17:41 Patient did not have IV access during this emergency room visit. me1 Administered Medications: No medications were administered Medication: 16:10 VIS not applicable for this client. me1 Outcome: 17:12 Discharge ordered by MD. kb 17:41 Discharged to home ambulatory, me1 17:41 Condition: stable 17:41 Discharge instructions given to patient, Instructed on discharge instructions, follow up and referral plans. Demonstrated understanding of instructions, follow-up care, 17:41 Patient left the ED. me1 Signatures: Dispatcher [employer] EDPA Janet Chisholm FNP-C HOTEL BREAKFAST ATTENDANT-Ckb Nichelle Bowser Michelle, RN RN me1 DMITRY DAVENPORT RN RN dd2 Osvaldo Burch FNP-C FNP-Cdr5 Corrections: (The following items were deleted from the chart) 16:34 16:01 Chief complaint: Patient states: HE BEGAN HAVING A SCRATCHY THROAT ON TUESDAY me1 AND TUESDAY HAD A COUGH AND RUNNY NOSE AND HAS WORSENED WITH CHILLS, ALL OVER BODY ACHES AND FEELING TIRED dd2
[2025-05-21 21:25] VITALS: O2SAT 100
[2025-05-21 21:26] VITALS: BP 128/87; TEMP 98.6
== END 2025-05-21 17:41 | disposition home or self-care (01) ==
LOC: ER 15:41
DX: B34.9 Viral infection, unspecified (principal); Z11.52 Encounter for screening for COVID-19
CPT/HCPCS: 36415; 71045; 87070; 87428; 99283